=== PATIENT | female | born 1985 | race Caucasian/White ===

== ENCOUNTER 2017-09-27 12:32 | Outpatient (CLI) | payer MEDICAID | END 2017-09-27 16:32 | disposition home or self-care (01) | LOC: OBT 12:32 → L-D 12:35 → OBT 16:32 | DX: O9A.212 Injury, poisoning and certain other consequences of external causes complicating pregnancy, second trimester (principal); R07.9 Chest pain, unspecified; Z3A.22 22 weeks gestation of pregnancy; V49.60XA Unspecified car occupant injured in collision with unspecified motor vehicles in traffic accident, initial encounter; Y92.410 Unspecified street and highway as the place of occurrence of the external cause | CPT/HCPCS: 76815 ==

== ENCOUNTER 2018-01-26 03:20 | Outpatient (CLI) | payer MEDICAID | END 2018-01-26 05:20 | disposition home or self-care (01) | LOC: OBT 03:20 → L-D 03:22 → OBT 05:20 | DX: O36.8130 Decreased fetal movements, third trimester, not applicable or unspecified (principal); Z3A.38 38 weeks gestation of pregnancy | CPT/HCPCS: 76818 ==

== ENCOUNTER 2018-01-28 19:55 | Inpatient (IN) | payer MEDICAID ==
[2018-01-28] MEDS: LACTATED RINGER'S 1,000 ML IV (20:52)
[2018-01-28] MEDS ORDERED: METHYLERGONOVINE 0.2 MG INJ IM (21:00)
[2018-01-28] MEDS ORDERED: MISOPROSTOL 200 MCG TAB PR (21:00)
[2018-01-28] MEDS ORDERED: BUTORPHANOL 2 MG INJ IV (21:00)
[2018-01-28] MEDS ORDERED: CARBOPROST 250 MCG INJ IM (21:00)
[2018-01-28] MEDS ORDERED: OXYTOCIN 30 UNITS/LR 500 ML IV ×2 (21:00)
[2018-01-28 21:16] LABS: ADD MAN DIFF? NO
[2018-01-28 21:19] LABS: ABNORMAL IP MESSAGE 1; BASOPHILS % 0.5 % (0.0-2.0); EOSINOPHILS % 0.3 % (0.0-7.0); HEMATOCRIT 39.2 % (37.0-47.0); HEMOGLOBIN 13.2 g/dl (12.0-16.0); LYMPHOCYTES # 1.6 10^3/ul (0.8-2.9); LYMPHOCYTES % 18.3 % (15.0-51.0); MEAN CORPUSCULAR HEMOGLOBIN 29.1 pg (29.0-33.0); MEAN CORPUSCULAR HGB CONC 33.7 g/dl (32.0-37.0); MEAN CORPUSCULAR VOLUME 86.5 fl (82.0-101.0); MONOCYTE # 1.1 10^3/ul (0.3-0.9); MONOCYTES % 12.1 % (0.0-11.0); NEUTROPHIL # 6.1 10^3/ul (1.6-7.5); NEUTROPHILS % 68.3 % (39.0-77.0); PLATELET COUNT 177 10^3/UL (140-415); RED BLOOD COUNT 4.53 10^6/ul (4.20-5.40)
[2018-01-28 21:19] LABS: WHITE BLOOD COUNT 8.9 10^3/ul (4.8-10.8)
[2018-01-28 21:21] LABS: MEAN PLATELET VOLUME 13.3 fl (7.4-10.4); POSITIVE DIFF @See below
[2018-01-28] MEDS ORDERED: PSEUDOEPHEDRINE 30 MG TAB PO (21:30)
[2018-01-28 21:40] LABS: ALANINE AMINOTRANSFERASE 35 IU/L (13-69); ALBUMIN 3.5 g/dl (3.3-4.9); ALKALINE PHOSPHATASE 172 IU/L (42-121); ANION GAP 9 (8-16); ASPARTATE AMINO TRANSFERASE 23 IU/L (15-46); BILIRUBIN,INDIRECT 0.4 mg/dl (0-1.1); BILIRUBIN,TOTAL 0.4 mg/dl (0.2-1.3); BLOOD UREA NITROGEN 10 mg/dl (7-20); CALCIUM 8.9 mg/dl (8.4-10.2); CARBON DIOXIDE 23 mmol/L (21-31); CHLORIDE 107 mmol/L (97-110); CREATININE 0.63 mg/dl (0.44-1.00); GLUCOSE 85 mg/dl (70-220); POTASSIUM 3.8 mmol/L (3.5-5.1); SODIUM 135 mmol/L (135-144); URIC ACID 4.7 mg/dl (3.1-7.9)
[2018-01-28 21:52] LABS: INR 1.02; PROTIME 13.5 Sec (11.9-14.9); PT RATIO 1.1
[2018-01-28 21:53] LABS: PARTIAL THROMBOPLASTIN TIME 30.6 Sec (25.0-35.0)
[2018-01-28 23:23] LABS: ADD UMIC NO; UR ASCORBIC ACID NEGATIVE (NEGATIVE); UR BILIRUBIN (Dip) NEGATIVE (NEGATIVE); UR BLOOD (Dip) NEGATIVE (NEGATIVE); UR CLARITY CLEAR (CLEAR); UR COLOR STRAW (YELLOW); UR GLUCOSE (Dip) NEGATIVE (NEGATIVE); UR KETONES (Dip) NEGATIVE (NEGATIVE); UR LEUKOCYTE ESTERASE (Dip) NEGATIVE Leu/ul (NEGATIVE); UR NITRITE (Dip) NEGATIVE (NEGATIVE); UR SPECIFIC GRAVITY (Dip) 1.004 (1.003-1.030); UR TOTAL PROTEIN (Dip) NEGATIVE (NEGATIVE); UR UROBILINOGEN (Dip) NEGATIVE (NEGATIVE)
[2018-01-29] MEDS: LACTATED RINGER'S 1,000 ML IV ×3 (01:59→20:41)
[2018-01-29] MEDS: OXYTOCIN 30 UNITS/LR 500 ML IV ×3 (02:00→15:21)
[2018-01-29] MEDS: LIDOCAINE 1% (MPF) 30 ML INJ INJ (07:46)
[2018-01-29] MEDS ORDERED: HYDROCODONE/APAP (5/325) TAB PO (10:00)
[2018-01-29] MEDS ORDERED: DIPHENHYDRAMINE 25 MG CAP PO (10:00)
[2018-01-29] MEDS ORDERED: ZOLPIDEM 5 MG TAB PO (10:00)
[2018-01-29] MEDS ORDERED: METHYLERGONOVINE 0.2 MG INJ IM (10:00)
[2018-01-29] MEDS ORDERED: OXYTOCIN 30 UNITS/LR 500 ML IV (10:00)
[2018-01-29] MEDS ORDERED: ACETAMINOPHEN 325 MG TAB PO (10:00)
[2018-01-29] MEDS ORDERED: CARBOPROST 250 MCG INJ IM (10:00)
[2018-01-29] MEDS ORDERED: MISOPROSTOL 200 MCG TAB PR (10:00)
[2018-01-29] MEDS ORDERED: MAGNESIUM HYDROXIDE 30ML CUP PO (10:00)
[2018-01-29] MEDS ORDERED: SENNA/DOCUSATE NA (8.6MG/50MG) TAB PO (10:00)
[2018-01-29] MEDS: BENZOCAINE 20% 56 ML SPRAY TOP (11:28)
[2018-01-29] MEDS: WITCH HAZEL/GLYCERIN PAD PR (11:28)
[2018-01-29] MEDS: IBUPROFEN 600 MG TAB PO (11:29)
[2018-01-29] MEDS: LANOLIN 7 GM TUBE TOP (11:37)
[2018-01-29] MEDS: IBUPROFEN 800 MG TAB PO ×2 (12:00→17:33)
[2018-01-29] MEDS: MINERAL OIL LIGHT 10 ML VIAL TOP (15:22)
[2018-01-29 15:32] LABS: RAPID PLASMA REAGIN NONREACTIVE (NR)
[2018-01-29] MEDS: LACTATED RINGER'S 1,000 ML IV* ×2 (15:53→17:57)
[2018-01-30] MEDS: IBUPROFEN 800 MG TAB PO ×5 (00:05→23:40)
[2018-01-30] MEDS: LACTATED RINGER'S 1,000 ML IV* ×3 (01:57→17:57)
[2018-01-30] MEDS: LACTATED RINGER'S 1,000 ML IV ×3 (04:41→20:21)
[2018-01-30 08:17] LABS: ADD MAN DIFF? NO
[2018-01-30 08:21] LABS: WHITE BLOOD COUNT 11.2 10^3/ul (4.8-10.8)
[2018-01-30 08:21] LABS: BASOPHILS % 0.3 % (0.0-2.0); EOSINOPHILS % 0.4 % (0.0-7.0); HEMATOCRIT 35.9 % (37.0-47.0); HEMOGLOBIN 11.9 g/dl (12.0-16.0); LYMPHOCYTES # 2.1 10^3/ul (0.8-2.9); LYMPHOCYTES % 18.8 % (15.0-51.0); MEAN CORPUSCULAR HGB CONC 33.1 g/dl (32.0-37.0); MEAN CORPUSCULAR VOLUME 87.3 fl (82.0-101.0); MEAN PLATELET VOLUME 12.9 fl (7.4-10.4); MONOCYTE # 0.9 10^3/ul (0.3-0.9); MONOCYTES % 7.9 % (0.0-11.0); NEUTROPHIL # 8.1 10^3/ul (1.6-7.5); NEUTROPHILS % 72.1 % (39.0-77.0); PLATELET COUNT 148 10^3/UL (140-415); RED BLOOD COUNT 4.11 10^6/ul (4.20-5.40); RED CELL DISTRIBUTION WIDTH 13.2 % (11.5-14.5)
[2018-01-30] MEDS: GUAIFENESIN/DM 5ML CUP PO ×2 (16:04→23:24)
[2018-01-31] MEDS: LACTATED RINGER'S 1,000 ML IV* (01:57)
[2018-01-31] MEDS: LACTATED RINGER'S 1,000 ML IV (03:18)
[2018-01-31] MEDS: IBUPROFEN 800 MG TAB PO ×2 (06:06→12:12)
[2018-01-31] MEDS: MEASLES,MUMPS,RUBELLA VACCINE INJ SC* (09:27)
[2018-01-31] MEDS: VARICELLA VACCINE LIVE/PF 1,350 UNIT/0.5 ML ML SC* (09:27)
[2018-01-31] MEDS: GUAIFENESIN/DM 5ML CUP PO (10:15)
[2018-01-31] MEDS: DIPHTH/TET/ACEL PERTUSS (ADULT) 0.5 ML VIAL IM* (12:12)
== END 2018-01-31 14:46 | disposition home or self-care (01) | DRG 775 ==
LOC: PP1 01-29 09:16 → L-D 19:55
PROC: 10E0XZZ Delivery of Products of Conception, External Approach (ICD-10-PCS; principal; 2018-01-29)
DX: O80 Encounter for full-term uncomplicated delivery (principal); Z3A.39 39 weeks gestation of pregnancy; Z37.0 Single live birth
CPT/HCPCS: 80053; 81003; 84560; 85025; 85384; 85610; 85730; 86592; 86850; 86900; 86901; 90715